=== PATIENT | male | born 2005 | race Caucasian/White ===

== ENCOUNTER 2025-06-19 02:08 | Emergency (ER) | payer BC, SELFPAY ==
[2025-06-19 02:18] VITALS: PULSE 63; O2SAT 99
[2025-06-19 02:19] VITALS: BP 144/88; PULSE 73; RESP 14; TEMP 37.1; O2SAT 100; BMI 27.1
--- NOTE | 2025-06-19 02:33 | HMH.EDGENADL ---
Discharge Plan Disposition Patient Disposition: Home, Self-Care Condition: Good Prescriptions Prescriptions: New amoxicillin-pot clavulanate 875-125 mg tablet 1 tab PO BID Qty: 10 0RF Referrals Follow up/Referrals: Provider,Referral, [Primary Care Provider, Medical] - See instructions Activity Restrictions/Add. Instructions Additional Instructions/Restrictions: You were evaluated in the ER and are believed to be appropriate for discharge at this time. Take the prescribed antibiotics as directed, do not skip doses, do not stop taking them early. Use the provided bacitracin ointment twice daily over the wound. Keep it clean and dry. You can shower/bathe like normal. You need to follow-up for additional rabies vaccines. These will have to be given on Sunday06/22/2025, 06/26/2025, and Sunday07/03/2025. Do not miss these vaccines. It is very important that you get the appropriate vaccines to prevent rabies. The infusion clinic will call you to schedule your appointment, if you have not heard from them by noon on 06/22/2025, call them! It is very important you get your next dose on Sunday. I recommend calling animal control in the morning and asking them where to take the body for testing for rabies if they need to do so. Make an appointment with your primary care doctor for reevaluation. Return to the ER with any new, worsening, or otherwise concerning symptoms including but not limited to signs of infection. Clinical Impressions Clinical Impression: Bitten by raccoon, initial encounter, Puncture wound of hand, right Instructions Patient Instructions: Animal Bites, DI for Animal Bites Discharge ED Provider: Steph Parker General Adult HPI General Chief complaint: Animal Bite Stated complaint: bit by a raccoon 0130 Time Seen by Provider: 06/19/25 02:18 Mode of Arrival: Family Vehicle Source of Information: Patient Description of Symptoms (Recalled from ER Triage Doc. by RN): Animal Bite Pt presents to the ED with c/o a raccoon bite to his R index finger. Pt reports that he had the raccon in a cage and went to let it out and it bit his finger. History of Present Illness HPI narrative: 20-year-old male who is otherwise healthy presents to the ER with complaints of right to the right index finger shortly prior to arrival. He reports the raccoon had been trapped and he was going to remove it when the raccoon bit his finger. Patient immediately went inside and washed his hands thoroughly and soaked in salt water. He presented to the ER for further evaluation. He reports he has dispatched the raccoon. I encouraged him to talk to animal control about where to take it for testing for rabies but he would like to pursue rabies prophylaxis which I believe is a good idea at this time. Unsure of his last tetanus booster. Patient shows me a small puncture wound on the lateral aspect of the right index finger between the PIP and DIP that is hemostatic. He has no numbness, tingling, weakness, fevers, no other associated symptoms. He is only here for the finger wound. Reports the raccoon did not appear ill but was agitated from the dogs barking at it and being in a cage. Related Data Previous Rx's ?Medication ?Instructions ?Recorded amoxicillin 875 mg-potassium 1 tab PO BID #10 tabs 06/19/25 clavulanate 125 mg tablet Allergies Allergy/AdvReac Type Severity Reaction Status Date / Time bee venom protein (honey bee) Allergy Unknown Verified 06/19/25 02:24 allergy reaction [facility] Disclaimer: The information contained in this section may have been updated after the patient was seen, as this information can be updated by other users. Social History Smoking Status: Current every day smoker ROS Obtained: Yes Systems reviewed as appropriate & no additional complaints except as documented Per HPI Physical Exam General General appearance: alert and in no apparent distress Head Head exam: atraumatic and normocephalic Eye Eye exam: Present PERRL and EOMI ENT ENT exam: Present mucous membranes moist Neck Neck exam: Present normal inspection and full ROM Chest Chest inspection: Present symmetric chest wall rise Respiratory Respiratory exam: Absent respiratory distress or stridor Cardiovascular Cardiovascular exam: Present regular rate and normal rhythm Extremities Exam Extremities exam: Present full ROM and normal capillary refill; Absent edema or joint swelling Expanded Upper Extremity Exam Right: Hand L/R front image:  1. other (Small puncture wound, does not involve deep structures, hemostatic, neurovascularly intact distally) Hand L/R back image:  1. small, superficial, hemostatic puncture wound. No foreign body, full range of motion and strenth, neurovascularly intact. Neurological Exam Neurological exam: Present alert and oriented X3; Absent motor sensory deficit Psychiatric Psychiatric exam: Present normal affect and normal mood Skin Skin exam: Present warm and dry Medical Decision Making Medical Records Medical records reviewed: Yes I reviewed the patient's medical records. Screening: Per USPSTF and CDC recommendations, given the prevalence of disease in our region, it is our hospital?s policy to screen for HIV and viral Hepatitis for all patients aged 18 and over and those with ongoing risk factors. Agustin Inquiry Pt receiving controlled substance: No Vital Signs: 06/19/25 02:19 Temperature 98.7 F Temperature Source Oral Pulse Rate [Left] 73 Respiratory Rate 14 Blood Pressure [Right Arm] 144/88 H Blood Pressure Mean [Right Arm] 106 Blood Pressure Source [Right Arm] Automatic Cuff Blood Pressure Position [Right Arm] Sitting 02 Sat by Pulse Oximetry 100 Oxygen Delivery Method Room Air Orders (Tests/Meds): ED MEDICATIONS Discontinued Medications Generic Name Dose Route Start Last Admin Trade Name Freq PRN Reason Stop Dose Admin Amoxicillin/Clavulanate Potassium 1 each 06/19/25 02:21 Amoxicillin/Clavulanate Potassium 875/125mg Tablet PO 06/19/25 02:22 ONCE ONE Bacitracin 1 gm 06/19/25 02:24 Bacitracin Zinc Oint 30gm Tube TP 06/19/25 02:25 ONCE ONE Rabies Immune Globulin 1,914 unit 06/19/25 02:28 Rabies Immune Globulin/Pf 300 Unit/Ml 5ml Vial IM 06/19/25 02:29 ONCE ONE Rabies Vaccine 2.5 unit 06/19/25 02:19 Rabies Vaccine (Pcec)/Pf 2.5 Unit Vial IM 06/19/25 02:20 .ONCE ONE Tetanus/Reduced Diphtheria/Acell Pertussis 0.5 ml 06/19/25 02:19 Tet/Diphth/Pert-Adult 0.5ml Syringe IM 06/19/25 02:20 .ONCE ONE ORDERS Category Date Time Status HIV Combo Stat Lab 06/19/25 02:25 Ordered Hepatitis C Ab Qual. W/ RFX Stat Lab 06/19/25 02:25 Ordered Medical Decision Narrative: In summary, this 20-year-old male presents to the emergency department today with concerns of raccoon bite to the right index finger shortly prior to arrival. On initial evaluation patient is hemodynamically stable, afebrile, overall well-appearing. Physical exam only notable for 2 small puncture wounds on the lateral and posterior aspect of the right index finger between the PIP and DIP which are hemostatic at this time as documented in the physical exam. Neurovascularly intact. No other abnormalities on exam. Differential diagnosis includes but is not limited to puncture wound, I examined these thoroughly for foreign body and there was none though this was considered on my differential as well. Patient will require Tdap booster, rabies immunoglobulin infiltration, rabies vaccines and is agreeable to all of these. I do not believe patient requires any labs or imaging at this time. In addition to the vaccines and immunoglobulin infiltration he is receiving Augmentin dose in the ER as well as prescription and bacitracin is being applied to the wound. Wounds were thoroughly cleaned and soaked in a saline and hibiclens solution. Patient tolerated vaccines and immunoglobulin infiltration well. Antibiotic has been administered and wound is covered. He is appropriate for discharge at this time. I encouraged him to call animal control to follow-up if they need to test the raccoon but reassured him that he is being appropriately treated for potential postexposure prophylaxis. Patient was given instructions on symptomatic monitoring and management, medication use, wound care, follow up instructions including outpatient order to infusion clinic for additional rabies vaccine doses which will have to be administered on 06/22, 06/26, and 07/03, and return precautions for the emergency department. Patient indicated understanding and was discharged in stable condition. Critical Care Critical Care Time Critical Care Time: No
[2025-06-19] MEDS: BACITRACIN ZINC OINT 30GM TUBE TP (03:01)
[2025-06-19] MEDS: AMOXICILLIN/CLAVULANATE POTASSIUM 875/125MG TABLET 1 EACH PO (03:02)
[2025-06-19] MEDS: TET/DIPHTH/PERT-ADULT 0.5ML SYRINGE 0.5 ML IM (03:03)
[2025-06-19] MEDS: RABIES VACCINE (PCEC)/PF 2.5 UNIT VIAL IM (03:04)
[2025-06-19] MEDS: RABIES IMMUNE GLOBULIN/PF 300 UNIT/ML 5ML VIAL 1914 UNIT IM (03:07)
[2025-06-19 03:14] VITALS: BP 116/62; PULSE 60; RESP 14; TEMP 37.1; O2SAT 100
[2025-06-19 03:15] VITALS: BP 116/62
--- OUTSIDE RECORDS SUMMARY | 2025-06-19 03:39 | XMS_ITS | Clinical Summary ---
Author Organization [employer] [facility] are Address [address] [place] [address] Phone Care Team Providers Care Supervisor Drapery Hanging Name Role Phone Unavailable Unavailable Conditions or Problems No information available. Medications No information available. Medications Administered No information available. Allergies, Adverse Reactions, Alerts No information available. Results No information available. Plan of Care No information available. Procedures No information available. Vital Signs No information available. Immunizations No information available. Advance Directives No information available.
--- OUTSIDE RECORDS SUMMARY | 2025-06-19 03:41 | XMS_ITS | Clinical Summary ---
Author Organization [facility] Address [address] [place] [address] Care Team Providers Care Lightning Protection Installer Name Role Phone Pcp, No Primary Care Provider [phone] Source Comments This information has been disclosed to you from confidential records protectedfrom disclosure by state law. You shall make no further disclosure of thisinformation without the specific, written, and informed release of theindividual to whom it pertains, or as otherwise permitted by law. A generalauthorization for the release of medical or other information is not sufficientfor the purposes of therelease of HIV test results or diagnoses. [id number] Allergies No known active allergies Medications No known medications Social History Tobacco Use Types Packs/Day Years Used Date Smoking Tobacco: Every Day Cigarettes Smokeless Tobacco: Never Alcohol Use Standard Drinks/Week Comments Not Currently 0 (1 standard drink = 0.6 oz pur e alcohol) Sex and Gender Information Value Date Recorded Sex Assigned at Not on file Legal Sex Male 8:47 AM EDT Gender Identity Not on file Sexual Orientation Not on file Last Filed Vital Signs Vital Sign Reading Time Taken Comments Blood Pressure 127/88 04/19/2022 8:55 AM EDT Pulse 72 04/19/2022 8:55 AM EDT Temperature 36.9 C (98.4 F) 04/19/2022 8:55 AM EDT Respiratory Rate 17 04/19/2022 8:55 AM EDT Oxygen Saturation 100% 04/19/2022 8:55 AM EDT Inhaled Oxygen Concentration 100% 04/19/2022 8 :55 AM EDT Weight - - Height - - Body Mass Index - - Plan of Treatment Not on file Care Teams Lightning Protection Installer Relationship Specialty Start Date End Date Pcp, No No Address PCP - General 04/19/22
--- OUTSIDE RECORDS SUMMARY | 2025-06-19 03:41 | XMS_ITS | Clinical Summary ---
Author Organization [facility] Address [address] [place] [address] Phone Care Team Providers Care Requisition Approver Name Role Phone Unavailable Primary Care Provider Unavailabl e Allergies No known active allergies Medications cetirizine (ZYRTEC) 10 mg Oral TabletIndication s:Allergic rhinitis, unspecified seasonality, unspecified trigger Take 1 Tablet by mouth daily. 30 Tablet 2 08/31/2021 Active fluticasone propionate (FLONASE) 50 mcg/actuation Nasl [place], SuspensionIndica tions:Allergic rhinitis, unspecified seasonality, unspecified trigger 2 Sprays by Nasal route daily. 1 Each 1 08/31/2021 Active Active Problems Patient Care Coordination No te Formatting of this note migh t be different from the original. Agustin ENTAS Controlled report completed 10/20/2019 Request#[id number] Informed consent signed 10/02/2019 Agustin- as expected 12/24/14 Contracts- 12/24/14 Problem Noted Date Diagnosed Date Chronic tonsillitis 10/08/2019 Overview (10/08/2019): Added automatically from request for surgery [id number] Impaired glucose tolerance 08/11/2018 Overview (08/11/2018): Work on diet/exercise. Hypothyroidism (acquired) 08/11/2018 Overview (08/11/2018): Mild. Diet/exercise and recheck 3 months. Severe obesity due to excess calories without serious comorbidity with body mass index (BMI) greater than 99th percentile for age in pediatric patient 07/26/2018 Overview (07/26/2018): Check labs for risk and underlying etiology. Diet/exercise modifications. Resolved Problems Problem Noted Date Diagnosed Date Resolved Date Closed fracture of parietal bone 03/16/2017 09/16/2019 Closed fracture of roof of orbit 03/16/2017 09/16/2019 Closed fracture of temporal bone 03/16/2017 09/16/2019 Closed sphenoid sinus fracture 03/16/2017 09/16/2019 Epidural hemorrhage with los s of consciousness of 30 minutes or less 03/16/201708/29 Immunizations Immunization Administration Dates Next Due DTaP 04/23/2009,200 6,2004,08/29,2004 DTaP, Unspecified Formulation 04/23/2009 HPV 9 Valent 07/21/2016,01/18/2016 HPV Quadrivalent 02/15/2016 Hepatitis A, Ped/Adol, 2 Dose 06/23/2015, 013 Hepatitis A, Unspecified Formulation 11/25/2012 05/25/2013 Hepatitis B, Unspecified Formulation 2004, 2004,2004 HiB, Unspecified Formulation 2004,09/13/20 04,2004 IPV 04/23/2009, 5,2004,0803/2004 Influenza Seasonal Injectable 11/25/2012, 010 Influenza Vaccine Quadrivalent 09/15/2015 Influenza Vaccine, Unspecifi ed Formulation 11/25/2012,07/27/2010 11/25/2013 MMR 04/23/2009,11/03/2005 Meningococcal Conjugate 09/03/2020,06/23/2015 Pneumococcal Conjugate Vacci ne 13 Valent 2004,2004,2004 Tdap 06/23/2015 Varicella 04/23/2009,11/03/2005 Surgical History Surgery Date Site/Laterality Comments TYMPANOSTOMY TUBE PLACEMENT CIRCUMCISION TONSILLECTOMY AND ADENOIDECTOMY 10/27/2019 Bilateral Tonsillectomy; Surgeon: Rod Huitron MD; Location: ED MAIN OR; Service: ENT Medical History Medical History Date Comments Allergy ADHD (attention deficit hyperactivity disorder) Skull fracture (HCC) Epidural hemorrhage with los s of consciousness of 30 minutes or less (HCC) 03/16/2017 Closed fracture of temporal bone (HCC) 03/16/2017 Closed fracture of roof of orbit (HCC) 03/16/2017 Closed fracture of parietal bone (HCC) 03/16/2017 Family History Medical History Relation Name Comments Unknown Father Substance Abuse Mother Relation Name Status Comments Father Alive Maternal Grandfather Alive Maternal Grandmother Alive Mother Alive Social History Tobacco Use Types Packs/Day Years Used Date Smoking Tobacco: Never Smokeless Tobacco: Never Alcohol Use Standard Drinks/Week Comments No 0 (1 standard drink = 0.6 oz pur e alcohol) PHQ-2 Answer Date Recorded PHQ-2 Score 0 03/21/2019 Sex and Gender Information Value Date Recorded Sex Assigned at Not on file Legal Sex Male 7:52 AM EDT Gender Identity Not on file Sexual Orientation Not on file Obstetrics History Last Filed Vital Signs Vital Sign Reading Time Taken Comments Blood Pressure 116/70 08/31/2021 2:02 PM EDT Pulse 70 08/31/2021 2:02 PM EDT Temperature 36.4 C (97.5 F) 08/31/2021 2:02 PM EDT Respiratory Rate 18 08/31/2021 2:02 PM EDT Oxygen Saturation 98% 08/31/2021 2:02 PM EDT Inhaled Oxygen Concentration - - Weight 86.2 kg (190 lb) 08/31/2021 2:02 PM EDT Height 180.3 cm (5' 11 ) 09/03/2020 1:09 PM EST Body Mass Index - - Plan of Treatment Health Maintenance Due Date Last Done Comments Annual Wellness Exam 2007 Meningococcal B Vaccine (1 of 2 - Standard) 2020 COVID-19 Vaccine ( season) 2024 DTaP/TDaP/Td (7 - Td or Tdap) 06/23/2025 06/23/2015, 04/23/2009, 04/23/2009, Additional history exists Influenza Vaccine (#1) 2025 5, 09/15/2015, 12/08/2014 (Postponed), Additional history exists Hepatitis B Vaccine Completed 2004, 2004, 2004 Pneumococcal Vaccine 0-49 Aged Out 2004, 2004, 2004 No longer eligible based on patient's age to complete this topic HPV Completed 07/21/2016, 01/27, 01/18/2016 Goals Goal Patient Goal Type Associated Problems Recent Progress Patient-Stated? Author Maintain a healthy diet, exercise regularly and maintain an ideal body weight General No Rod Moran MD Insurance 97 [facility] [address] [employer] [facility] [place] [address] [facility] [place] [facility] [employer] [facility] [place] [address] [address] [place] [id number]
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
== END 2025-06-19 03:29 | disposition home or self-care (01) ==
LOC: ER 03:38
PROVIDERS: Emergency Provider Emergency Medicine
DX: S61.250A Open bite of right index finger without damage to nail, initial encounter (principal); W55.51XA Bitten by raccoon, initial encounter
CPT/HCPCS: 90375; 90471; 90472; 90675; 90715; 96372; 99284

== ENCOUNTER 2025-06-22 13:34 | Outpatient (CLI) | payer BC, SELFPAY ==
[2025-06-22] MEDS: RABIES VACCINE (PCEC)/PF 2.5 UNIT VIAL IM (13:44)
--- OUTSIDE RECORDS SUMMARY | 2025-06-22 13:44 | XMS_ITS | Clinical Summary ---
Author Organization [facility] Address [address] [place] [address] Care Team Providers Care Cook Chief Name Role Phone Rod Moran M.D. Primary Care Provider + Source Comments [facility] is fully rolled out with thefollowing exceptions:General Clinical Research [facility] Allergies Active Allergy Reactions Criticality Noted [...] age to complete this topic Insurance [employer] [facility] Care Teams Cook Chief Relationship Specialty Start Date End Date Rod Moran M.D. [place] [address] [place] [address] PCP - General External Family Practice 03/15/17
--- OUTSIDE RECORDS SUMMARY | 2025-06-22 13:44 | XMS_ITS | Clinical Summary ---
Author Organization [employer] [facility] are Address [address] [place] [address] Phone Care Team Providers Care Machine Operator Assistant Name Role Phone Unavailable Unavailable Conditions or Problems No information available. Medications No information available. Medications Administered No information available. Allergies, Adverse Reactions, Alerts No information available. Results No information available. Plan of Care No information available. Procedures No information available. Vital Signs No information available. Immunizations No information available. Advance Directives No information available.
--- OUTSIDE RECORDS SUMMARY | 2025-06-22 13:45 | XMS_ITS | Clinical Summary ---
Author Organization [facility] Address [address] [place] [address] Care Team Providers Care Log Carrier Operator Name Role Phone Pcp, No Primary Care Provider [phone] Source Comments This information has been disclosed [...] therelease of HIV test results or diagnoses. [id number] Allergies No known active allergies Medications [...] of Treatment Not on file Care Teams Log Carrier Operator Relationship Specialty Start Date End Date Pcp, No No Address PCP - General 04/19/22
--- OUTSIDE RECORDS SUMMARY | 2025-06-22 13:45 | XMS_ITS | Clinical Summary ---
Author Organization [facility] Address [address] [place] [address] Phone Care Team Providers Care Livestock Farmer Name Role Phone Unavailable Primary Care Provider Unavailabl e Allergies No known active allergies Medications cetirizine (ZYRTEC) 10 mg Oral TabletIndication s:Allergic rhinitis, unspecified seasonality, unspecified trigger Take 1 Tablet by mouth daily. 30 Tablet 2 08/31/2021 Active fluticasone propionate (FLONASE) 50 mcg/actuation Nasl [place], SuspensionIndica tions:Allergic rhinitis, unspecified seasonality, unspecified trigger 2 Sprays by Nasal route daily. 1 Each 1 08/31/2021 Active Active Problems Patient Care Coordination No te Formatting of this note migh t be different from the original. Agustin ENTAS Controlled report completed 10/20/2019 Request#[id number] Informed consent signed 10/02/2019 Agustin- as expected 12/24/14 Contracts- 12/24/14 Problem Noted Date Diagnosed Date Chronic tonsillitis 10/08/2019 Overview (10/08/2019): Added automatically from request for surgery [id number] Impaired glucose tolerance 08/11/2018 Overview (08/11/2018): Work [...] weight General No Rod Moran MD [facility] [place] [address] [facility] [place] [address] [address] [place] [id number]
[2025-06-22 13:46] VITALS: BP 144/77; PULSE 71; RESP 18; TEMP 36.8; O2SAT 99
== END 2025-06-22 13:46 | disposition home or self-care (01) ==
LOC: INF 13:35
PROVIDERS: Visit Provider Emergency Medicine
DX: Z29.14 Encounter for prophylactic rabies immune globulin (principal); W55.51XA Bitten by raccoon, initial encounter; Y93.9 Activity, unspecified; Y92.9 Unspecified place or not applicable
CPT/HCPCS: 90675; 96372

== ENCOUNTER 2025-06-26 08:19 | Outpatient (CLI) | payer BC, SELFPAY ==
[2025-06-26 08:30] VITALS: BP 121/80; PULSE 73; RESP 18; TEMP 36.9; O2SAT 100
[2025-06-26] MEDS: RABIES VACCINE (PCEC)/PF 2.5 UNIT VIAL IM (08:30)
== END 2025-06-26 08:58 | disposition home or self-care (01) ==
LOC: INF 08:20
PROVIDERS: Visit Provider Emergency Medicine
DX: Z29.14 Encounter for prophylactic rabies immune globulin (principal); W55.51XA Bitten by raccoon, initial encounter
CPT/HCPCS: 90675; 96372